=== PATIENT | male | born 1975 | race Caucasian/White ===

== ENCOUNTER 2017-07-13 19:57 | Inpatient (IN) | payer OTHER, SELFPAY ==
[2017-07-13 21:07] LABS: HEMOGLOBIN 14.4 g/dl (13.5-17.5); MEAN CORPUSCULAR HEMOGLOBIN 29.6 pg (27.0-33.0); MEAN CORPUSCULAR HGB CONC 34.3 g/dl (32.0-36.5); MEAN CORPUSCULAR VOLUME 86.2 fl (80.0-96.0); PLATELET COUNT, AUTOMATED 197 10^3/uL (150-450); RED BLOOD COUNT 4.87 10^6/uL (4.30-6.10); RED CELL DISTRIBUTION WIDTH 12.9 % (11.5-14.5); WHITE BLOOD COUNT 8.8 10^3/uL (4.0-10.0)
[2017-07-13 21:15] LABS: AMPHETAMINES LEVEL URINE POSITIVE (NEGATIVE); BARBITURATES URINE NEGATIVE (NEGATIVE); BENZODIAZEPINES URINE NEGATIVE (NEGATIVE); CANNABINOIDS URINE NEGATIVE (NEGATIVE); COCAINE METABOLITE URINE NEGATIVE (NEGATIVE); METHADONE URINE NEGATIVE (NEGATIVE); OPIATES URINE NEGATIVE (NEGATIVE); PHENCYCLIDINE URINE NEGATIVE (NEGATIVE)
[2017-07-13 22:01] LABS: ACETAMINOPHEN LEVEL < 2.0 UG/ML (10.0-30.0); ALBUMIN 3.2 GM/DL (3.2-5.2); ALBUMIN/GLOBULIN RATIO 1.03 (1.00-1.93); ALKALINE PHOSPHATASE 67 U/L (45-117); ALT/SGPT 28 U/L (12-78); ANION GAP 9 MEQ/L (8-16); AST/SGOT 25 U/L (7-37); BILIRUBIN,DIRECT < 0.1 MG/DL (0.0-0.2); BILIRUBIN,TOTAL 0.2 MG/DL (0.2-1.0); BLOOD UREA NITROGEN 10 MG/DL (7-18); CALCIUM LEVEL 8.2 MG/DL (8.5-10.1); CARBON DIOXIDE LEVEL 25 MEQ/L (21-32); CHLORIDE LEVEL 110 MEQ/L (98-107); CREATININE FOR GFR 0.64 MG/DL (0.70-1.30); GLOMERULAR FILTRATION RATE > 60.0 (>60); GLUCOSE, FASTING 103 MG/DL (70-100); POTASSIUM SERUM 4.1 MEQ/L (3.5-5.1); SALICYLATE LEVEL < 1.7 MG/DL (5.0-30.0); SODIUM LEVEL 144 MEQ/L (136-145); THYROID STIMULATING HORMONE 0.301 uIU/ML (0.358-3.740); TOTAL PROTEIN 6.3 GM/DL (6.4-8.2)
[2017-07-13 22:03] LABS: ETHYL ALCOHOL (ETHANOL) < 0.003 % (0.000-0.010)
[2017-07-13] MEDS ORDERED: MOM 30ML SUSPENSION UDC PO (22:30)
[2017-07-13] MEDS ORDERED: MAALOX 30 ML SUSP *UDC PO (22:30)
[2017-07-14] MEDS: NICOTINE 21MG/24HR 1 EA TRANSDERMAL TD (09:50)
[2017-07-14] MEDS: VENLAFAXINE **XR** 75MG CAPSULE PO (15:25)
[2017-07-14] MEDS: QUEtiapine FUMARATE 25 MG TAB PO (21:38)
[2017-07-15] MEDS: NICOTINE 21MG/24HR 1 EA TRANSDERMAL TD (10:22)
[2017-07-15] MEDS: VENLAFAXINE **XR** 75MG CAPSULE PO (10:22)
[2017-07-15] MEDS: OLANZapine ORAL DISINTEGRATING TAB 5MG PO (17:52)
[2017-07-15] MEDS: QUEtiapine FUMARATE 25 MG TAB PO (21:54)
[2017-07-15] MEDS: AZITHROMYCIN 250 MG TAB PO (21:54)
[2017-07-16] MEDS: VENLAFAXINE **XR** 75MG CAPSULE PO (08:45)
[2017-07-16] MEDS: NICOTINE 21MG/24HR 1 EA TRANSDERMAL TD (08:46)
[2017-07-16] MEDS: OLANZapine ORAL DISINTEGRATING TAB 5MG PO ×2 (09:24→18:45)
[2017-07-16] MEDS: GABAPENTIN 100 MG CAP PO ×2 (17:54→22:17)
[2017-07-16] MEDS: DULoxetine 30 MG CAP (CYMBALTA) PO (18:43)
[2017-07-16] MEDS: AZITHROMYCIN 250 MG TAB PO (22:17)
[2017-07-16] MEDS: QUEtiapine FUMARATE 25 MG TAB PO (22:18)
[2017-07-17] MEDS: GABAPENTIN 100 MG CAP PO ×3 (08:15→20:32)
[2017-07-17] MEDS: DULoxetine 30 MG CAP (CYMBALTA) PO (08:15)
[2017-07-17] MEDS: OLANZapine ORAL DISINTEGRATING TAB 5MG PO ×2 (08:16→16:56)
[2017-07-17] MEDS: NICOTINE 21MG/24HR 1 EA TRANSDERMAL TD (08:16)
[2017-07-17] MEDS ORDERED: VENLAFAXINE **XR** 37.5 MG CAPSULE PO (09:00)
[2017-07-17] MEDS ORDERED: VENLAFAXINE **XR** 75MG CAPSULE PO (09:00)
[2017-07-17] MEDS: clonazePAM 1 MG TAB PO ×2 (16:29→20:32)
[2017-07-17] MEDS: ATOMOXETINE HCL 40 MG CAP (STRATTERA) PO (16:56)
[2017-07-17] MEDS: QUEtiapine FUMARATE 25 MG TAB PO (20:32)
[2017-07-17] MEDS: AZITHROMYCIN 250 MG TAB PO (20:32)
[2017-07-18 08:04] LABS: FREE THYROXINE INDEX 3.2 % (1.4-3.8); T UPTAKE 40 % (33-40); THYROID STIMULATING HORMONE 0.608 uIU/ML (0.358-3.740); THYROXINE (T4) 8.1 UG/DL (4.5-12.0)
[2017-07-18] MEDS: NICOTINE 21MG/24HR 1 EA TRANSDERMAL TD (08:14)
[2017-07-18] MEDS: ATOMOXETINE HCL 40 MG CAP (STRATTERA) PO (08:14)
[2017-07-18] MEDS: clonazePAM 1 MG TAB PO ×2 (08:15→21:06)
[2017-07-18] MEDS: GABAPENTIN 100 MG CAP PO ×3 (08:15→21:06)
[2017-07-18] MEDS: OLANZapine ORAL DISINTEGRATING TAB 5MG PO ×3 (08:15→21:06)
[2017-07-18] MEDS: CitaloPRAM (CeleXA) 20 MG TAB PO (08:15)
[2017-07-18] MEDS: ACETAMINOPHEN TAB 650MG DOSE (2X325MG) PO (10:24)
[2017-07-18] MEDS: QUEtiapine FUMARATE 25 MG TAB PO (21:06)
[2017-07-18] MEDS: AZITHROMYCIN 250 MG TAB PO (21:06)
[2017-07-19] MEDS: ATOMOXETINE HCL 40 MG CAP (STRATTERA) PO (08:07)
[2017-07-19] MEDS: clonazePAM 1 MG TAB PO (08:07)
[2017-07-19] MEDS: GABAPENTIN 100 MG CAP PO (08:07)
[2017-07-19] MEDS: CitaloPRAM (CeleXA) 20 MG TAB PO (08:07)
[2017-07-19] MEDS: NICOTINE 21MG/24HR 1 EA TRANSDERMAL TD (08:07)
[2017-07-19] MEDS: OLANZapine ORAL DISINTEGRATING TAB 5MG PO (10:20)
== END 2017-07-19 10:20 | disposition home or self-care (01) | DRG 754 ==
LOC: M ED 19:57 → M ED INP 22:22 → M PSY 23:12
DX: F32.9 Major depressive disorder, single episode, unspecified (principal); F06.30 Mood disorder due to known physiological condition, unspecified; F41.1 Generalized anxiety disorder; F90.9 Attention-deficit hyperactivity disorder, unspecified type; Z79.899 Other long term (current) drug therapy; F17.210 Nicotine dependence, cigarettes, uncomplicated; J06.9 Acute upper respiratory infection, unspecified; R94.6 Abnormal results of thyroid function studies

== ENCOUNTER 2017-08-14 18:35 | Inpatient (IN) | payer OTHER, MEDICAID ==
[2017-08-14 19:20] LABS: HEMOGLOBIN 15.6 g/dl (13.5-17.5); MEAN CORPUSCULAR HEMOGLOBIN 29.3 pg (27.0-33.0); MEAN CORPUSCULAR HGB CONC 33.9 g/dl (32.0-36.5); MEAN CORPUSCULAR VOLUME 86.3 fl (80.0-96.0); PLATELET COUNT, AUTOMATED 220 10^3/uL (150-450); RED BLOOD COUNT 5.33 10^6/uL (4.30-6.10); RED CELL DISTRIBUTION WIDTH 13.1 % (11.5-14.5); WHITE BLOOD COUNT 11.2 10^3/uL (4.0-10.0)
[2017-08-14 19:23] LABS: ADD MANUAL DIFFER YES; DIFF SLIDE NUMBER 394; POSITIVE DIFF POS FLAG
[2017-08-14] MEDS: MORPHINE 4 MG/ML 1ML VIAL/SYRINGE (J2270) IV (19:40)
[2017-08-14] MEDS: NS 1,000 ML IV (19:41)
[2017-08-14 19:42] LABS: ALBUMIN 3.8 GM/DL (3.2-5.2); ALBUMIN/GLOBULIN RATIO 1.15 (1.00-1.93); ALKALINE PHOSPHATASE 69 U/L (45-117); ALT/SGPT 29 U/L (12-78); ANION GAP 5 MEQ/L (8-16); AST/SGOT 17 U/L (7-37); BILIRUBIN,TOTAL 0.3 MG/DL (0.2-1.0); BLOOD UREA NITROGEN 16 MG/DL (7-18); CALCIUM LEVEL 8.8 MG/DL (8.5-10.1); CARBON DIOXIDE LEVEL 30 MEQ/L (21-32); CHLORIDE LEVEL 108 MEQ/L (98-107); CREATININE FOR GFR 0.83 MG/DL (0.70-1.30); GLOMERULAR FILTRATION RATE > 60.0 (>60); GLUCOSE, FASTING 91 MG/DL (70-100); LIPASE 268 U/L (73-393); POTASSIUM SERUM 4.2 MEQ/L (3.5-5.1); SODIUM LEVEL 143 MEQ/L (136-145); TOTAL PROTEIN 7.1 GM/DL (6.4-8.2)
[2017-08-14 20:05] LABS: BASOPHILS 1 % (0-4); EOSINOPHILS 1 % (0-5); LYMPHOCYTES 48 % (16-52); MONOCYTES 4 % (0-8); NEUTROPHILS 46 % (35-75); PLATELET ESTIMATE NORMAL (NORMAL)
[2017-08-14] MEDS: PROCHLORPERAZINE 10 MG/2 ML VIAL (J0780) IV (20:12)
[2017-08-14 21:03] LABS: AMORPHOUS SEDIMENT SMALL (NEGATIVE); APPEARANCE, URINE CLOUDY (CLEAR); BACTERIA, URINE AUTO NEGATIVE (NEGATIVE); BILIRUBIN, URINE AUTO NEGATIVE (NEGATIVE); BLOOD, URINE BLOOD NEGATIVE (NEGATIVE); COLOR, URINE YELLOW (YELLOW); GLUCOSE, URINE (UA) AUTO NEGATIVE (NEGATIVE); KETONE, URINE AUTO NEGATIVE (NEGATIVE); LEUKOCYTE ESTERASE, URINE AUTO NEGATIVE (NEGATIVE); MUCUS, URINE SMALL (NEGATIVE); NITRITE, URINE AUTO NEGATIVE (NEGATIVE); PROTEIN, URINE AUTO NEGATIVE (NEGATIVE); RBC, URINE AUTO 2 /HPF (0-3); SPECIFIC GRAVITY URINE AUTO 1.017 (1.002-1.035); SQUAMOUS EPITHELIAL CELL UR AU 0 /HPF (0-6); UROBILINOGEN, URINE AUTO 0.2 mg/dL (0.0-2.0); WBC, URINE AUTO 0 /HPF (0-3)
[2017-08-14] MEDS ORDERED: OLANZapine 5 MG TAB PO (22:15)
[2017-08-14] MEDS ORDERED: KETOROLAC 30 MG/ML VIAL (J1885) IV (22:15)
[2017-08-14] MEDS ORDERED: ONDANSETRON 4MG/2ML VIAL (J2405) IV (22:15)
[2017-08-14] MEDS ORDERED: D5W/0.45% SODIUM CHLORIDE 1,000 ML IV (22:15)
[2017-08-14] MEDS ORDERED: hydrOXYzine 25 MG TAB PO (22:15)
[2017-08-14] MEDS ORDERED: NICOTINE 21MG/24HR 1 EA TRANSDERMAL TD (23:00)
[2017-08-15] MEDS ORDERED: CitaloPRAM (CeleXA) 20 MG TAB PO (09:00)
[2017-08-15] MEDS ORDERED: GABAPENTIN 300 MG CAP PO (09:00)
== END 2017-08-14 23:30 | disposition left against medical advice (07) ==
LOC: M ED 18:35 → M ED INP 22:06
DX: K80.51 Calculus of bile duct without cholangitis or cholecystitis with obstruction (principal); F31.9 Bipolar disorder, unspecified; F90.9 Attention-deficit hyperactivity disorder, unspecified type; F17.210 Nicotine dependence, cigarettes, uncomplicated; Z79.899 Other long term (current) drug therapy; Z88.0 Allergy status to penicillin

== ENCOUNTER 2017-08-15 20:03 | Inpatient (IN) | payer OTHER ==
[2017-08-15] MEDS: NICOTINE 21MG/24HR 1 EA TRANSDERMAL TD (00:20)
[2017-08-15] MEDS ORDERED: ACETAMINOPHEN TAB 650MG DOSE (2X325MG) PO (23:15)
[2017-08-15] MEDS ORDERED: ONDANSETRON 4MG/2ML VIAL (J2405) IV (23:15)
[2017-08-15] MEDS ORDERED: OLANZapine 10 MG TAB PO (23:30)
[2017-08-16 00:20] LABS: BASO # 0.1 10^3/uL (0.0-0.2); BASO % 0.7 % (0.0-1.0); EOS # 0.3 10^3/uL (0.0-0.50); EOS % 2.8 % (0.0-3.0); HEMATOCRIT 43.2 % (42.0-52.0); HEMOGLOBIN 14.8 g/dl (13.5-17.5); IMMATURE GRANULOCYTE % 0.2 % (0-3.0); LYMPH # 3.4 10^3/uL (1.5-4.5); MEAN CORPUSCULAR HEMOGLOBIN 29.7 pg (27.0-33.0); MEAN CORPUSCULAR HGB CONC 34.3 g/dl (32.0-36.5); MEAN CORPUSCULAR VOLUME 86.7 fl (80.0-96.0); MONO # 0.5 10^3/uL (0.0-0.8); MONO % 5.5 % (0.0-5.0); NEUTROPHILS # 4.7 10^3/uL (1.8-7.7); NEUTROPHILS % 52.8 % (36.0-66.0); PLATELET COUNT, AUTOMATED 192 10^3/uL (150-450); RED BLOOD COUNT 4.98 10^6/uL (4.30-6.10); RED CELL DISTRIBUTION WIDTH 13.2 % (11.5-14.5); WHITE BLOOD COUNT 8.9 10^3/uL (4.0-10.0)
[2017-08-16] MEDS: NS 1,000 ML IV ×2 (00:20→10:06)
[2017-08-16] MEDS: PERCOCET 5MG/325MG TAB PO ×5 (00:20→21:30)
[2017-08-16 00:42] LABS: ALBUMIN 3.4 GM/DL (3.2-5.2); ALBUMIN/GLOBULIN RATIO 1.06 (1.00-1.93); ALKALINE PHOSPHATASE 66 U/L (45-117); ALT/SGPT 37 U/L (12-78); ANION GAP 5 MEQ/L (8-16); AST/SGOT 17 U/L (7-37); BILIRUBIN,DIRECT < 0.1 MG/DL (0.0-0.2); BILIRUBIN,TOTAL 0.3 MG/DL (0.2-1.0); BLOOD UREA NITROGEN 10 MG/DL (7-18); CALCIUM LEVEL 8.5 MG/DL (8.5-10.1); CARBON DIOXIDE LEVEL 29 MEQ/L (21-32); CHLORIDE LEVEL 108 MEQ/L (98-107); CREATININE FOR GFR 0.67 MG/DL (0.70-1.30); GLOMERULAR FILTRATION RATE > 60.0 (>60); GLUCOSE, FASTING 108 MG/DL (70-100); LIPASE 153 U/L (73-393); POTASSIUM SERUM 3.6 MEQ/L (3.5-5.1); SODIUM LEVEL 142 MEQ/L (136-145); TOTAL PROTEIN 6.6 GM/DL (6.4-8.2)
[2017-08-16 06:38] LABS: AMORPHOUS SEDIMENT RFX SMALL (NEGATIVE); KETONE, URINE AUTO RFX NEGATIVE (NEGATIVE); LEUKOCYTE ESTERASE UR AUTO RFX NEGATIVE (NEGATIVE); NITRITE, URINE AUTO RFX NEGATIVE (NEGATIVE); RBC, URINE AUTO RFX 1 /HPF (0-3); SPECIFIC GRAVITY UR AUTO RFX 1.016 (1.002-1.035); SQUAM EPITHELIAL CELL UR AURFX 0 /HPF (0-6); WBC, URINE AUTO RFX 0 /HPF (0-3)
[2017-08-16] MEDS: CitaloPRAM (CeleXA) 20 MG TAB PO (09:13)
[2017-08-16] MEDS: GABAPENTIN 300 MG CAP PO ×3 (09:13→21:29)
[2017-08-16] MEDS: hydrOXYzine 25 MG TAB PO ×3 (09:13→21:45)
[2017-08-16] MEDS: LISDEXAMFETAMINE 50 MG PO (10:47)
[2017-08-16] MEDS: NICOTINE 21MG/24HR 1 EA TRANSDERMAL TD (10:48)
[2017-08-16] MEDS ORDERED: fentaNYL 100 MCG/2 ML INJECTION (J3010) As Ordered (20:29)
[2017-08-16] MEDS ORDERED: PROPOFOL 200 MG/20 ML VIAL As Ordered ×2 (20:33)
[2017-08-16] MEDS ORDERED: ONDANSETRON 4MG/2ML VIAL (J2405) IV (21:00)
[2017-08-16] MEDS ORDERED: LR 1,000 ML IV (21:00)
[2017-08-16] MEDS ORDERED: fentaNYL 100 MCG/2 ML INJECTION (J3010) IV (21:00)
[2017-08-16] MEDS ORDERED: METOCLOPRAMIDE INJ 10MG/2ML VIAL (J2765) IV (21:00)
[2017-08-17] MEDS: GABAPENTIN 300 MG CAP PO (07:42)
[2017-08-17] MEDS: CitaloPRAM (CeleXA) 20 MG TAB PO (07:42)
[2017-08-17] MEDS: LISDEXAMFETAMINE 50 MG PO (07:43)
[2017-08-17] MEDS: NICOTINE 21MG/24HR 1 EA TRANSDERMAL TD (07:45)
[2017-08-17] MEDS: PERCOCET 5MG/325MG TAB PO (10:22)
[2017-08-17] MEDS: hydrOXYzine 25 MG TAB PO (12:23)
== END 2017-08-17 13:55 | disposition home or self-care (01) ==
LOC: M MS5PR 08-16 00:46 → M ED 20:03 → M ED INP 23:07
PROC: 0DJ08ZZ Inspection of Upper Intestinal Tract, Via Natural or Artificial Opening Endoscopic (ICD-10-PCS; principal; 2017-08-16 19:00)
DX: K80.00 Calculus of gallbladder with acute cholecystitis without obstruction (principal); F31.9 Bipolar disorder, unspecified; F90.9 Attention-deficit hyperactivity disorder, unspecified type; F41.9 Anxiety disorder, unspecified; Z88.0 Allergy status to penicillin; Z79.899 Other long term (current) drug therapy; F17.210 Nicotine dependence, cigarettes, uncomplicated

== ENCOUNTER 2017-11-12 03:17 | Emergency (ER) | payer OTHER ==
[2017-11-12 04:21] LABS: BASO # 0.1 10^3/uL (0.0-0.2); BASO % 0.6 % (0.0-1.0); EOS # 0.4 10^3/uL (0.0-0.50); EOS % 3.8 % (0.0-3.0); HEMATOCRIT 45.4 % (42.0-52.0); HEMOGLOBIN 15.5 g/dl (13.5-17.5); IMMATURE GRANULOCYTE % 0.4 % (0-3.0); LYMPH # 3.8 10^3/uL (1.5-4.5); LYMPH % 38.1 % (24.0-44.0); MEAN CORPUSCULAR HEMOGLOBIN 29.8 pg (27.0-33.0); MEAN CORPUSCULAR HGB CONC 34.1 g/dl (32.0-36.5); MEAN CORPUSCULAR VOLUME 87.3 fl (80.0-96.0); MONO # 0.7 10^3/uL (0.0-0.8); MONO % 6.6 % (0.0-5.0); NEUTROPHILS % 50.5 % (36.0-66.0); PLATELET COUNT, AUTOMATED 193 10^3/uL (150-450); RED CELL DISTRIBUTION WIDTH 12.8 % (11.5-14.5); WHITE BLOOD COUNT 9.9 10^3/uL (4.0-10.0)
[2017-11-12 04:43] LABS: ALBUMIN 3.4 GM/DL (3.2-5.2); ALBUMIN/GLOBULIN RATIO 0.97 (1.00-1.93); ALKALINE PHOSPHATASE 60 U/L (45-117); ALT/SGPT 27 U/L (12-78); AMYLASE 78 U/L (25-115); ANION GAP 6 MEQ/L (8-16); AST/SGOT 14 U/L (7-37); BILIRUBIN,DIRECT 0.2 MG/DL (0.0-0.2); BILIRUBIN,TOTAL 0.4 MG/DL (0.2-1.0); BLOOD UREA NITROGEN 15 MG/DL (7-18); CALCIUM LEVEL 8.5 MG/DL (8.5-10.1); CARBON DIOXIDE LEVEL 28 MEQ/L (21-32); CHLORIDE LEVEL 110 MEQ/L (98-107); GLOMERULAR FILTRATION RATE > 60.0 (>60); GLUCOSE, FASTING 91 MG/DL (70-100); LIPASE 202 U/L (73-393); POTASSIUM SERUM 3.5 MEQ/L (3.5-5.1); SODIUM LEVEL 144 MEQ/L (136-145); TOTAL PROTEIN 6.9 GM/DL (6.4-8.2)
[2017-11-12] MEDS: MORPHINE 4 MG/ML 1ML VIAL/SYRINGE (J2270) IV (06:15)
[2017-11-12] MEDS: NS 1,000 ML IV (06:15)
== END 2017-11-12 09:38 | disposition home or self-care (01) ==
LOC: M ED 03:17
DX: K80.40 Calculus of bile duct with cholecystitis, unspecified, without obstruction (principal); F31.9 Bipolar disorder, unspecified; F17.200 Nicotine dependence, unspecified, uncomplicated; Z88.0 Allergy status to penicillin; Z79.899 Other long term (current) drug therapy
CPT/HCPCS: J2270

== ENCOUNTER 2017-12-10 09:56 | Day surgery (SDC) | payer OTHER ==
[2017-12-10] MEDS ORDERED: PROPOFOL 200 MG/20 ML VIAL As Ordered (11:03)
[2017-12-10] MEDS ORDERED: fentaNYL 250 MCG/5 ML INJECTION (J3010) As Ordered (11:03)
[2017-12-10] MEDS ORDERED: ROCURONIUM BROMIDE 50 MG/5 ML VIAL As Ordered (11:03)
[2017-12-10] MEDS ORDERED: dexameTHASONE 4 MG/ML 1ML VIAL (J1100) As Ordered (11:03)
[2017-12-10] MEDS ORDERED: ONDANSETRON 4MG/2ML VIAL (J2405) As Ordered (11:03)
[2017-12-10] MEDS ORDERED: KETOROLAC 60 MG/2 ML VIAL (J1885) As Ordered (11:03)
[2017-12-10] MEDS ORDERED: MIDAZOLAM INJ 2 MG/2 ML VIAL (J2250) As Ordered ×2 (11:03→12:00)
[2017-12-10] MEDS ORDERED: LIDOCAINE 2% INJ 100 MG/5 ML SDV (FOR ANES.) As Ordered (11:03)
[2017-12-10] MEDS ORDERED: NEOSTIGMINE 10 MG/10 ML VIAL (J2710) As Ordered (11:06)
[2017-12-10] MEDS ORDERED: GLYCOPYRROLATE INJ 0.2 MG/ML 2 ML VIAL As Ordered ×2 (11:06)
[2017-12-10] MEDS ORDERED: fentaNYL 100 MCG/2 ML INJECTION (J3010) As Ordered (11:17)
[2017-12-10] MEDS ORDERED: SUGAMMADEX SODIUM 500 MG/5 ML VIAL (BRIDION) As Ordered (11:21)
[2017-12-10] MEDS: BUPIVACAINE/EPIN 0.25% 30 ML VIAL As Ordered (11:34)
[2017-12-10] MEDS: BUPIVACAINE HCL 0.25% 30 ML VIAL As Ordered (11:34)
[2017-12-10] MEDS ORDERED: MORPHINE 10 MG/ML 1ML VIAL (J2270) IV (12:15)
[2017-12-10] MEDS ORDERED: LR 1,000 ML IV (12:15)
[2017-12-10] MEDS ORDERED: NORCO, ANEXSIA 5/325MG TABLET (HYDROcodone/ACETAMINOPHEN) PO (12:15)
[2017-12-10] MEDS: PERCOCET 5MG/325MG TAB PO (12:23)
[2017-12-10] MEDS: fentaNYL 100 MCG/2 ML INJECTION (J3010) IV ×4 (12:30→12:45)
[2017-12-10] MEDS: ONDANSETRON 4MG/2ML VIAL (J2405) IV (12:30)
== END 2017-12-10 14:30 | disposition home or self-care (01) ==
LOC: M SDC 09:56
DX: K80.10 Calculus of gallbladder with chronic cholecystitis without obstruction (principal); F41.9 Anxiety disorder, unspecified; F32.9 Major depressive disorder, single episode, unspecified; F90.9 Attention-deficit hyperactivity disorder, unspecified type; R06.83 Snoring; F12.90 Cannabis use, unspecified, uncomplicated; L98.9 Disorder of the skin and subcutaneous tissue, unspecified; Z72.0 Tobacco use; Z88.0 Allergy status to penicillin; Z79.899 Other long term (current) drug therapy
CPT/HCPCS: 47562

== ENCOUNTER 2018-04-19 18:22 | Emergency (ER) | payer OTHER ==
[~2018-04-19] VITALS: Ht 175.3 cm; Wt 81.8 kg
[~2018-04-19 18:22] MED LIST: ATOM40CA PO; AZIT-12 PO; CELE20TA PO; CIPR-249 PO; CITA20TA4 PO; CLON1TAB8 PO; FLAG500T PO; GABA-1171 PO; GABA-843 PO; HYDR-3363 PO; MIRT30TA3 PO; NICO21DI31 TD; NICO21PAT TD; NORCOTAB PO; OLAN10TA2 PO; OLAN15TA PO; PERCOCET PO; QUET1TAB7 PO; REME30TA PO; TYLE325T5 PO; VYVA50CA4 PO
[2018-04-19] MEDS ORDERED: ZITHTAB PO (20:01)
[2018-04-19] MEDS ORDERED: PRED20TA PO (20:01)
--- NOTE | 2018-04-19 20:11 | REP ---
CHEST, TWO VIEWS: No comparison. Two views of the chest are performed. There are streak opacities in the lung bases probably representing fibro atelectatic change. The heart is normal in size. Mediastinal silhouette is unremarkable. Visualized osseous structures appear unremarkable. IMPRESSION: Streaky bibasilar opacities most compatible with fibro atelectatic changes. No consolidating infiltrate. Electronically Signed by Alfonso Boswell MD 04/20/2018 07:17 P
[2018-04-19 20:12] VITALS: BP 121/69
--- NOTE | 2018-04-20 06:39 | ECGEPIP ---
Stationary ECG Study [facility] - ED Test Date: 2018-04-19 Pat Name: LAURA ELIZALDE Department: Room: - Gender: M Records Assistant: gt : 1975 Requested By: PEDRO Waters Order Number: [id number] Reading MD: Arnoldo Mcmanus Measurements Intervals [place] Rate: 84 P: 69 IA: 153 QRS: 77 QRSD: 95 T: 44 QT: 340 QTc: 402 Interpretive Statements SINUS RHYTHM POSSIBLE INFERIOR MYOCARDIAL INFARCTION, PROBABLY OLD WITH POSTERIOR EXTENSION NONSPECIFIC ST T WAVE CHANGES NO OLD ECG FOR COMPARISON Electronically Signed On 04-20-2018 6:39:34 EST by Arnoldo Mcmanus
== END 2018-04-19 20:13 | disposition home or self-care (01) ==
LOC: M ED 18:22
DX: F41.1 Generalized anxiety disorder (principal); J42 Unspecified chronic bronchitis; F32.9 Major depressive disorder, single episode, unspecified; Z72.0 Tobacco use; Z88.0 Allergy status to penicillin

== ENCOUNTER 2018-08-11 21:29 | Inpatient (IN) | payer MEDICAID, OTHER, SELFPAY ==
[~2018-08-11] VITALS: Ht 175.3 cm; Wt 75.1 kg
[~2018-08-11 21:29] MED LIST changes: -CITA20TA4 PO; +CITA20TA6 PO; +HYDR-3715 PO; -NORCOTAB PO; +PRED20TA PO; +ZITHTAB PO
[2018-08-11] MEDS ORDERED: LORazepam 2 MG/ML VIAL (J2060) IM STA (21:57)
[2018-08-11] MEDS ORDERED: NICOTINE 21MG/24HR 1 EA TRANSDERMAL TD ONE (22:00)
[2018-08-11 22:08] LABS: HEMOGLOBIN 15.5 g/dl (13.5-17.5); MEAN CORPUSCULAR HEMOGLOBIN 30.4 pg (27.0-33.0); MEAN CORPUSCULAR HGB CONC 33.7 g/dl (32.0-36.5); MEAN CORPUSCULAR VOLUME 90.2 fl (80.0-96.0); PLATELET COUNT, AUTOMATED 184 10^3/uL (150-450); WHITE BLOOD COUNT 10.7 10^3/uL (4.0-10.0)
[2018-08-11 22:50] LABS: ACETAMINOPHEN LEVEL < 2.0 UG/ML (10.0-30.0); ALBUMIN 3.5 GM/DL (3.2-5.2); ALT/SGPT 29 U/L (12-78); BILIRUBIN,DIRECT 0.2 MG/DL (0.0-0.2); BILIRUBIN,TOTAL 0.8 MG/DL (0.2-1.0); BLOOD UREA NITROGEN 8 MG/DL (7-18); CALCIUM LEVEL 8.6 MG/DL (8.5-10.1); CARBON DIOXIDE LEVEL 27 MEQ/L (21-32); CHLORIDE LEVEL 107 MEQ/L (98-107); CPK CREATINE PHOSPHOKINASE 184 U/L (39-308); CREATININE FOR GFR 0.84 MG/DL (0.70-1.30); ETHYL ALCOHOL (ETHANOL) < 0.003 % (0.000-0.010); GLOMERULAR FILTRATION RATE > 60.0 (>60); GLUCOSE, FASTING 76 MG/DL (70-100); POTASSIUM SERUM 3.5 MEQ/L (3.5-5.1); SODIUM LEVEL 144 MEQ/L (136-145); THYROID STIMULATING HORMONE 0.927 uIU/ML (0.358-3.740); TOTAL PROTEIN 6.4 GM/DL (6.4-8.2)
[2018-08-11 23:22] LABS: AMPHETAMINES LEVEL URINE POSITIVE (NEGATIVE); BARBITURATES URINE NEGATIVE (NEGATIVE); BENZODIAZEPINES URINE NEGATIVE (NEGATIVE); CANNABINOIDS URINE POSITIVE (NEGATIVE); COCAINE METABOLITE URINE NEGATIVE (NEGATIVE); METHADONE URINE NEGATIVE (NEGATIVE); OPIATES URINE NEGATIVE (NEGATIVE); PHENCYCLIDINE URINE NEGATIVE (NEGATIVE)
[2018-08-12] MEDS ORDERED: QUET1TAB7 PO (00:09)
[2018-08-12] MEDS ORDERED: REME15TA2 PO (00:09)
[2018-08-12] MEDS ORDERED: VYVA70CA3 PO (00:09)
[2018-08-12] MEDS ORDERED: MIRT1TAB PO (09:12)
[2018-08-12] MEDS ORDERED: MAALOX 30 ML SUSP *UDC PO PRN (13:45)
[2018-08-12] MEDS ORDERED: MOM 30ML SUSPENSION UDC PO PRN (13:45)
[2018-08-12 14:28] VITALS: BP 142/72
[2018-08-12] MEDS ORDERED: NICOTINE 21MG/24HR 1 EA TRANSDERMAL TD ONE (14:30)
--- NOTE | 2018-08-12 15:10 | ECGEPIP ---
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
[2018-08-12] MEDS: OLANZapine ORAL DISINTEGRATING TAB 5MG PO PRN (15:31)
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
[2018-08-12] MEDS ORDERED: DOCUSATE SODIUM 100 MG CAP PO PRN (16:30)
[2018-08-12] MEDS: traZODone 50 MG TAB PO PRN (21:51)
[2018-08-12] MEDS: ANUSOL HC 25MG SUPP PR SCH (21:51)
[2018-08-13] MEDS: ANUSOL HC 25MG SUPP PR SCH ×3 (05:53→22:00)
[2018-08-13 06:41] VITALS: BP 129/78
[2018-08-13] MEDS: OLANZapine ORAL DISINTEGRATING TAB 5MG PO PRN (08:24)
[2018-08-13] MEDS: NICOTINE 21MG/24HR 1 EA TRANSDERMAL TD SCH (08:24)
[2018-08-13 11:49] VITALS: BP 112/55
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
[2018-08-13] MEDS: QUEtiapine FUMARATE 25 MG TAB PO SCH ×2 (16:05→20:44)
[2018-08-13 18:41] VITALS: BP 106/59
[2018-08-13] MEDS: MIRTAZAPINE 15 MG TAB PO SCH (20:44)
[2018-08-13] MEDS: traZODone 50 MG TAB PO PRN (20:44)
[2018-08-14] MEDS: ANUSOL HC 25MG SUPP PR SCH ×3 (05:09→21:25)
[2018-08-14 06:39] VITALS: BP 114/72
[2018-08-14] MEDS ORDERED: ADDERALL 5 MG TAB PO SCH (09:00)
[2018-08-14] MEDS: QUEtiapine FUMARATE 25 MG TAB PO SCH ×2 (09:43→20:24)
[2018-08-14] MEDS: NICOTINE 21MG/24HR 1 EA TRANSDERMAL TD SCH (09:44)
[2018-08-14] MEDS: OLANZapine ORAL DISINTEGRATING TAB 5MG PO PRN (12:49)
[2018-08-14] MEDS: ACETAMINOPHEN TAB 650MG DOSE (2X325MG) PO PRN (12:50)
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
[2018-08-14 18:00] VITALS: BP 109/64
[2018-08-14] MEDS: MIRTAZAPINE 15 MG TAB PO SCH (20:24)
[2018-08-15] MEDS: ANUSOL HC 25MG SUPP PR SCH ×3 (05:15→21:14)
[2018-08-15 06:34] LABS: CHOLESTEROL RISK RATIO 3.628 (<5)
[2018-08-15 06:48] VITALS: BP 109/62
[2018-08-15] MEDS: NICOTINE 21MG/24HR 1 EA TRANSDERMAL TD SCH (08:11)
[2018-08-15] MEDS: ADDERALL 5 MG TAB PO SCH (08:12)
[2018-08-15] MEDS: QUEtiapine FUMARATE 25 MG TAB PO SCH (08:12)
[2018-08-15] MEDS: OLANZapine ORAL DISINTEGRATING TAB 5MG PO PRN (12:49)
[2018-08-15] MEDS: ACETAMINOPHEN TAB 650MG DOSE (2X325MG) PO PRN (17:22)
[2018-08-15 18:00] VITALS: BP 132/84
[2018-08-15] MEDS: MIRTAZAPINE 15 MG TAB PO SCH (20:23)
--- NOTE | 2018-08-15 20:51 | MHIPNPDOC ---
[facility] Progress Note Progress Note DATE OF SERVICE: 08/15/18 HISTORY: Patient is a 43 -year-old , male, who. as per ED report: " Reason for Referral pt has a hx of Bi-polar Disorder, currently decompensating due to non-compliance with medication. Pt expresses SI(no plan) and HI(with plan) upon arrival... Chief Complaint pt states, "I'm scared I'm going to kill myself or kill someone else." Pt reports a hx of Bipolar Disorder, currently seeks tx with [facility]. 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 States he's been out of meds for the past 10-14 days and is aware he's manic, along with increase agitation. Pt states, "I'm going to kill my 's boyfriend." States he has a plan but refuses to explain in detail. Pt reports kicked him out 2 months ago due to suspecting he's abusing drugs. Pt admits to Marijuana abuse, but denies any other substances. States he's having a difficult time with spouse "already having a boyfriend" and is not being legally or . Pt's speech is very rapid, appears manic, and continues to express SI(no plan) and HI(with plan) directed towards spouse's new boyfriend. States he has intent to kill him and will follow through even after hospitalization is completed" VITAL SIGNS: See below. NEW TEST RESULTS: See below. CURRENT MEDICATIONS: See below. MENTAL STATUS EXAMINATION: Patient is a 43-year old male, who is alert, dressed in hospital clothes, cooperative. Speech: Is normal in rate, tone and volume. Language skills are good. Thought processes including: linear, coherent. Thought content: focused on being discharged, he needs to go back to work in order to pay his bills. He denies SI and denies HI. Abstract reasoning, and computation: fair Description of associations: good. Description of abnormal or psychotic thoughts: denies AV hallucinations, denies thought delusions. Judgment: improving. Insight: improving. Orientation: x 3. Recent and remote memory: intact. Attention span and concentration: good. Language: rissa. Fund of knowledge: average. Mood: anxious Affect: congruent with mood. DIAGNOSES: 1. Bipolar disorder, depressed 2. ADHD by history. 3. . ASSESSMENT: The patient was not approved for Medicaid, so, he will be leaving tomorrow and will send him with scripts for generic medications from [facility]. He will be able to get Quetiapine but Vyvanse is very expensive and they don't have Adderall or Ritalin, probably they are controlled substances. [facility], so, maybe they will be able to give him some samples. the patient has improved bu he is drinking too much coffeee and this is not going to help him feel calm, plus it puts abit risk on his heart and blood pressure. He was counseled this morning to decrease his caffeine intake but he says he drinks a lot of coffee because medications usually make him feel a little sleepy and he needs to be awake to be able to work. His mood and affect have improved, his insight has improved and his judgement too. He says he won't hurt his 's boyfriend, won't hurt himself and denies psychosis. He could be discharged tomorrow, depending on how he presents tomorrow morning. Sde is going to inquire if he could qualify for other type of health insurance. MANAGEMENT PLAN: Consider the possibility of discharging him tomorrow TIME SPENT: 20 minutes. Vital Signs Vital Signs Date Time Temp Pulse Resp B/P (MAP) Pulse Ox O2 Delivery O2 Flow Rate FiO2 08/15/18 18:00 99.6 102 18 132/84 (100) 08/15/18 11:17 Room Air 08/12/18 14:28 93 Laboratory Data 24H Labs Laboratory Tests 2 08/15/18 05:53: Triglycerides Level 105, LDL Cholesterol 71, Total Cholesterol 127, Non-HDL Cholesterol (LDL + VLDL) 92, Total HDL Cholesterol 35L, Cholesterol/HDL Ratio 3.628 Current Medications Current Medications Acetaminophen (Tylenol Tab) 650 mg Q6HP PRN PO HEADACHE or DISCOMFORT Last administered on 08/15/18at 17:22; Start 08/12/18 at 13:45 Al Hydrox/Mg Hydrox/Simethicone (Mylanta) 30 ml Q4HP PRN PO HEAR TBURN/INDIGESTION; Start 08/12/18 at 13:45 Amphetamine/ Dextroamphetamine (Adderall) 20 mg QAM PO Last administered on 08/14/18 09:44; Start 08/14/18 at 09:00; Stop 08/14/18 at 16:03; Status DC Amphetamine/ Dextroamphetamine (Adderall) 30 mg QAM PO Last administered on 08/15/18at 08:12; Start 08/15/18 at 09:00 Docusate Sodium (Colace) 100 mg BIDP PRN PO CONSTIPATION; Start 08/12/18 at 16:30 Home Med (Med Rec Complete!) ASDIRECTED XX ; Start 08/12/18 at 09:15; Stop 08/12/18 at 09:17; Status DC Hydrocortisone Acetate (Anusol Hc Supp) 25 mg Q8H FL Last administered on 08/12/18at 21:51; Start 08/12/18 at 22:00 Lorazepam (Ativan) 2 mg STAT STAT IM Last administered on 08/11/18at 22:21; Start 08/11/18 at 21:57; Stop 08/11/18 at 21:58; Status DC Magnesium Hydroxide (Milk Of Magnesia) 30 ml DAILYPRN PRN PO CONSTIPATION; Start 08/12/18 at 13:45 Mirtazapine (Remeron) 15 mg QHS PO Last administered on 08/15/18at 20:23; Start 08/13/18 at 21:00 Nicotine (Nicoderm Cq 21mg) 1 patch DAILY TD Last administered on 08/15/18at 08:11; Start 08/13/18 at 09:00 Olanzapine (ZyPREXA ZYDIS) 5 mg Q4HP PRN PO ANXIETY/AGITATION Last administered on 08/15/18at 12:49; Start 08/12/18 at 14:00 Quetiapine Fumarate (SEROquel) 25 mg QAM PO ; Start 08/16/18 at 09:00 Quetiapine Fumarate (SEROquel) 25 mg TID PO Last administered on 08/14/18at 09:43; Start 08/13/18 at 16:00; Stop 08/14/18 at 16:03; Status DC Quetiapine Fumarate (SEROquel) 50 mg TID PO Last administered on 08/15/18at 08:12; Start 08/14/18 at 21:00; Stop 08/15/18 at 11:42; Status DC Quetiapine Fumarate (SEROquel) 100 mg QHS PO Last administered on 08/15/18at 20:23; Start 08/15/18 at 21:00 Trazodone HCl (Desyrel) 50 mg QHSP PRN PO INSOMNIA Last administered on 08/13/18at 20:44; Start 08/12/18 at 13:45 Allergies Coded Allergies: Penicillins (Verified Allergy, Severe, 08/11/18) GLENYS CHILDERS MD Aug 15, 2018 20:51
[2018-08-15] MEDS ORDERED: QUEtiapine FUMARATE 100 MG TAB PO SCH (21:00)
[2018-08-16] MEDS: ANUSOL HC 25MG SUPP PR SCH (05:06)
[2018-08-16 06:35] VITALS: BP 139/86
[2018-08-16] MEDS: ADDERALL 5 MG TAB PO SCH (08:03)
[2018-08-16] MEDS: NICOTINE 21MG/24HR 1 EA TRANSDERMAL TD SCH (08:03)
[2018-08-16] MEDS ORDERED: QUEtiapine FUMARATE 25 MG TAB PO SCH (09:00)
[2018-08-16] MEDS: OLANZapine ORAL DISINTEGRATING TAB 5MG PO PRN (09:57)
[2018-08-16] MEDS ORDERED: QUET1TAB7 PO (11:18)
[2018-08-16] MEDS ORDERED: REME15TA PO (11:18)
[2018-08-16] MEDS ORDERED: QUET1TAB8 PO (11:18)
[2018-08-16] MEDS ORDERED: NICO21PAT TD (11:18)
[2018-08-16] MEDS ORDERED: COLA100C5 PO (11:18)
--- NOTE | 2018-09-07 22:56 | MHDSPDOC ---
[facility] Discharge Summary Discharge Summary DATE OF ADMISSION: Aug 12, 2018 at 13:34 DATE OF DISCHARGE: Aug 16, 2018 at 12:15 DISCHARGE DIAGNOSES: 1. Bipolar disorder, depressed 2. ADHD by history. REASON FOR ADMISSION: Patient is a 43 -year-old , male, who. as per ED report: "Reason for Referral pt has a hx of Bi-polar Disorder, currently decompensating due to non-compliance with medication. Pt expresses SI(no plan) and HI(with plan) upon arrival... Chief Complaint pt states, "I'm scared I'm going to kill myself or kill someone else." Pt reports a hx of Bipolar Disorder, currently seeks tx with [facility]. Admits not being able to hand picker his medications from the pharmacy due to not having any prescription coverage and unable to afford medication on his own. States he's been out of meds for the past 10-14 days and is aware he's manic, along with increase agitation. Pt states, "I'm going to kill my 's boyfriend." States he has a plan but refuses to explain in detail. Pt reports kicked him out 2 months ago due to suspecting he's abusing drugs. Pt admits to Marijuana abuse, but denies any other substances. States he's having a difficult time with spouse "already having a boyfriend" and is not being legally or . Pt's speech is very rapid, appears manic, and continues to express SI(no plan) and HI(with plan) directed towards spouse's new boyfriend. States he has intent to kill him and will follow through even after hospitalization is completed" CONSULTANTS INVOLVED: None TREATMENT AND PROGRESS ON THE UNIT : Upon initial evaluation the patient was very irritable, angry at his 's new boyfriend and he had suicidal and homicidal ideation. He said he wanted to take Vyvanse for ADHD but the hospital doesn't have Vyvanse in the pharmacy. he agreed to take Seroquel but he didn't wnt a high does in the morning because he was afraid of being sleepy during the day time and not be able to perform at work. 48 hours later his mood and affect had improved, he was able to sleep and this helped him decrease his anxiety, depression and anger. He started being logical and he said he was not yuli that angry at his 's new boyfriend. He started accepting responsibilities of his own problems and he was able to see how these had affected his marriage in a negative way. The patient was not able to comply with medications before because he was out of insurance and through the [facility] he applied for [place] ed[place] but he couldn't because his salary was above what would be approved for Medicaid. Once he felt better, he requested to be discharged because he said that staying at the Unit was going to stress him more since he needed to g back to work to pay his bills. He had a good response to medications, he denied negative/adverse effects. HOSPITAL COURSE: As above DISCHARGE ASSESSMENT: The patient was not suicidal, not homicidal, not psychotic at the time of his discharge. He was future orientated, he wanted to go back to work, continue his outpatient treatment. MENTAL STATUS EXAMINATION ON DISCHARGE: Patient is a 43-year old male, who is alert, dressed in hospital clothes, cooperative. Speech: Is normal in rate, tone and volume. Language skills are good. Thought processes including: linear, coherent. Thought content: focused on being discharged, he needs to go back to work in order to pay his bills. He denies SI and denies HI. Abstract reasoning, and computation: fair Description of associations: good. Description of abnormal or psychotic thoughts: denies AV hallucinations, denies thought delusions. Judgment: improving. Insight: improving. Orientation: x 3. Recent and remote memory: intact. Attention span and concentration: good. Language: rissa. Fund of knowledge: average. Mood: anxious Affect: congruent with mood. DIAGNOSES: 1. Bipolar disorder, depressed 2. ADHD by history. MEDICATIONS ON DISCHARGE: Scheduled Lisdexamfetamine Dimesylate (Vyvanse) 70 Mg Capsule, 70 MG PO QAM, (Reported) Mirtazapine (Remeron) 15 Mg Tablet, 15 MG PO QHS for INSOMNIA, #7 Nicotine (Nicotine Patch) 21 Mg Patch.td24, 1 PATCH TD DAILY for NICOTINE CRAVINGS, #7 Quetiapine Fumarate (Quetiapine Fumarate) 25 Mg Tablet, 25 MG PO QAM for MOOD, #7 Quetiapine Fumarate (Quetiapine Fumarate) 100 Mg Tablet, 100 MG PO QHS for MOOD, #7 Scheduled PRN Docusate Sodium (Colace) 100 Mg Capsule, 100 MG PO BIDP PRN for CONSTIPATION, #14 PLAN/FOLLOWUP ARRANGEMENTS: Follow Up Care Education Label * Mental Health Appt 1 * Mental [facility] * Established With This Provider Yes * Therapist RICARDO * Date Aug 19, 2018 * Time 13:00 * Address of Clinic or Practice [address] [place] [address] * Follow Up Care Education Label * Medical * Medical Follow Up [facility] * Established With This Provider No * Therapist WINNIE AYALA * Date Aug 30, 2018 * Time 15:00 * Address of Clinic or Practice [address] [place] [address] * * Additional information Please arrive 15 minutes early to fill out new patient paperwork. Also, please remember to bring your insurance card and photo ID to this visit. Follow Up Care Education Label * Mental Health Appt 2 * [facility] * Established With This Provider Yes * Therapist ZOE * Date Sep 18, 2018 * Time 10:00 * Address of Clinic or Practice [address] [place] [address] * The amount of time spent in the coordination of care for this patient was approx imately 30 minutes. Medications Scheduled Lisdexamfetamine Dimesylate (Vyvanse) 70 Mg Capsule, 70 MG PO QAM, (Reported) Mirtazapine (Remeron) 15 Mg Tablet, 15 MG PO QHS for INSOMNIA, #7 Nicotine (Nicotine Patch) 21 Mg Patch.td24, 1 PATCH TD DAILY for NICOTINE CRAVINGS, #7 Quetiapine Fumarate (Quetiapine Fumarate) 25 Mg Tablet, 25 MG PO QAM for MOOD, #7 Quetiapine Fumarate (Quetiapine Fumarate) 100 Mg Tablet, 100 MG PO QHS for MOOD, #7 Scheduled PRN Docusate Sodium (Colace) 100 Mg Capsule, 100 MG PO BIDP PRN for CONSTIPATION, #14 Allergies Coded Allergies: Penicillins (Verified Allergy, Severe, 08/11/18) GLENYS CHILDERS MD Sep 07, 2018 22:54
== END 2018-08-16 12:15 | disposition home or self-care (01) | DRG 753 ==
LOC: M ED 21:29 → M ED INP 08-12 13:34 → M PSY 08-12 14:20
PROVIDERS: ADMIT Psychiatry & Neurology Psychiatry; ATTEND Psychiatry & Neurology Psychiatry
DX: F31.60 Bipolar disorder, current episode mixed, unspecified (principal); F41.1 Generalized anxiety disorder; F17.200 Nicotine dependence, unspecified, uncomplicated; F12.10 Cannabis abuse, uncomplicated; Z91.120 Patient's intentional underdosing of medication regimen due to financial hardship; Z88.0 Allergy status to penicillin; Z79.899 Other long term (current) drug therapy; Z63.5 Disruption of family by separation and divorce; F90.9 Attention-deficit hyperactivity disorder, unspecified type

== ENCOUNTER 2021-11-18 21:50 | Inpatient (IN) | payer MEDICAID, OTHER ==
[~2021-11-18] VITALS: Ht 175.3 cm; Wt 76.2 kg
[~2021-11-18 21:50] MED LIST changes: -ATOM40CA PO; +ATOM40CA16 PO; +COLA100C5 PO; +GABA-282 PO; -GABA-843 PO; +MIRT-60 PO; +MIRT-62 PO; +MIRT1TAB PO; +NICO1DIS12 TD; -NICO21DI31 TD; -OLAN10TA2 PO; -OLAN15TA PO; +OLAN15TA13 PO; +OLAN1TAB20 PO; +QUET100T2 PO; +QUET1TAB17 PO; -QUET1TAB7 PO; +REME15TA2 PO; -REME30TA PO; +VYVA70CA3 PO
[2021-11-18 22:00] VITALS: BP 95/69
[2021-11-18] MEDS ORDERED: diphenhydrAMINE 25MG CAP PO ONE (22:20)
[2021-11-18 22:30] VITALS: BP 93/61
[2021-11-18] MEDS ORDERED: HOME MED LIST COMPLETE! XX SCH (22:55)
[2021-11-18 23:00] VITALS: BP 101/66
[2021-11-18] MEDS ORDERED: ALBUTEROL SULFATE 2.5 MG/0.5 ML INH NEB SOLN NEB PRN (23:20)
[2021-11-18] MEDS: rOPINIRole 2MG TAB PO SCH (23:23)
[2021-11-18] MEDS ORDERED: ASPIRIN 81 MG CHEW TABLET PO ONE (23:25)
[2021-11-18 23:30] VITALS: BP 102/62
[2021-11-18] MEDS ORDERED: NS 1,000 ML IV SCH (23:30)
[2021-11-19] VITALS (18 sets, daily range): BP systolic 91–141; BP diastolic 50–74
[2021-11-19 00:26] LABS: BLOOD UREA NITROGEN 15 MG/DL (7-18); CALCIUM LEVEL 7.8 MG/DL (8.5-10.1); CARBON DIOXIDE LEVEL 26 MEQ/L (21-32); CHLORIDE LEVEL 110 MEQ/L (98-107); CREATININE FOR GFR 0.74 MG/DL (0.70-1.30); GLOMERULAR FILTRATION RATE > 60.0 (>60); GLUCOSE, FASTING 152 MG/DL (70-100); MAGNESIUM LEVEL 2.1 MG/DL (1.8-2.4); PHOSPHORUS LEVEL 4.2 MG/DL (2.5-4.9); POTASSIUM SERUM 4.4 MEQ/L (3.5-5.1); SODIUM LEVEL 139 MEQ/L (136-145)
[2021-11-19] MEDS ORDERED: diphenhydrAMINE 50MG/ML VIAL (J1200) IV STA (01:29)
[2021-11-19] MEDS ORDERED: OLANZapine 2.5MG TABLET PO ONE (02:00)
[2021-11-19] MEDS ORDERED: diltiaZEM 125 MG in NS 100 ML IV SCH ×3 (04:02)
[2021-11-19] MEDS: HEPARIN SOD (PORCINE) 5000UNITS/ML 1ML VIAL/SYRINGE SC SCH ×3 (06:00→21:56)
[2021-11-19 06:04] LABS: BASO # 0.1 10^3/uL (0.0-0.2); BASO % 0.4 % (0.0-1.0); EOS # 0.2 10^3/uL (0.0-0.5); EOS % 1.4 % (0.0-3.0); HEMATOCRIT 38.8 % (42.0-52.0); LYMPH % 25.2 % (24.0-44.0); MEAN CORPUSCULAR HEMOGLOBIN 30.3 pg (27.0-33.0); MEAN CORPUSCULAR HGB CONC 33.5 g/dl (32.0-36.5); MEAN CORPUSCULAR VOLUME 90.4 fl (80.0-96.0); MONO # 0.7 10^3/uL (0.0-0.8); MONO % 6.1 % (2.0-8.0); NEUTROPHILS # 7.9 10^3/uL (1.5-8.5); NEUTROPHILS % 66.6 % (36.0-66.0); PLATELET COUNT, AUTOMATED 168 10^3/uL (150-450); RED BLOOD COUNT 4.29 10^6/uL (4.30-6.10); WHITE BLOOD COUNT 11.8 10^3/uL (4.0-10.0)
[2021-11-19 06:34] LABS: ALBUMIN 3.2 GM/DL (3.2-5.2); ALT/SGPT 273 U/L (12-78); BLOOD UREA NITROGEN 15 MG/DL (7-18); CALCIUM LEVEL 7.9 MG/DL (8.5-10.1); CARBON DIOXIDE LEVEL 26 MEQ/L (21-32); CHLORIDE LEVEL 109 MEQ/L (98-107); CREATININE FOR GFR 0.78 MG/DL (0.70-1.30); GLOMERULAR FILTRATION RATE > 60.0 (>60); GLUCOSE, FASTING 94 MG/DL (70-100); POTASSIUM SERUM 4.1 MEQ/L (3.5-5.1); SODIUM LEVEL 139 MEQ/L (136-145); TOTAL PROTEIN 5.9 GM/DL (6.4-8.2)
[2021-11-19] MEDS ORDERED: methylPREDNISolone 125MG 2ML VIAL IV ONE (08:15)
[2021-11-19] MEDS: IPRATROPIUM 0.5MG/ALBUTEROL 2.5MG INH SOL UD 3ML (DUONEB) NEB SCH ×4 (08:29→19:03)
[2021-11-19] MEDS ORDERED: ASPIRIN 81 MG CHEW TABLET PO SCH (09:00)
[2021-11-19 11:54] LABS: CHOLESTEROL LEVEL 88 MG/DL (<200); CHOLESTEROL RISK RATIO 2.588 (<5); FREE T4 0.94 NG/DL (0.76-1.46); HDL CHOLESTEROL 34 MG/DL (>40); LDL CHOLESTEROL 38 MG/DL (<100); NON-HDL-C 54 MG/DL; TRIGLYCERIDES LEVEL 78 MG/DL (<150)
[2021-11-19 12:14] LABS: HEMOGLOBIN A1c 5.5 %
[2021-11-19] MEDS ORDERED: ISOVUE-370 76% 100ML VIAL As Ordered ONE (13:27)
[2021-11-19] MEDS: ATORVASTATIN 20 MG TAB PO SCH (14:30)
[2021-11-19] MEDS: LevoFLOXacin 750 MG TABLET PO SCH (14:31)
[2021-11-19] MEDS ORDERED: OLANZapine INTRAMUSCULAR 10MG VIAL IM ONE (16:25)
[2021-11-19] MEDS: rOPINIRole 2MG TAB PO SCH (20:13)
[2021-11-20] VITALS (7 sets, daily range): BP systolic 99–129; BP diastolic 56–81
[2021-11-20 04:34] LABS: BASO % 0.2 % (0.0-1.0); HEMATOCRIT 40.7 % (42.0-52.0); HEMOGLOBIN 13.4 g/dl (13.5-17.5); LYMPH % 10.2 % (24.0-44.0); MEAN CORPUSCULAR HEMOGLOBIN 29.6 pg (27.0-33.0); MEAN CORPUSCULAR HGB CONC 32.9 g/dl (32.0-36.5); MONO # 0.5 10^3/uL (0.0-0.8); MONO % 4.6 % (2.0-8.0); NEUTROPHILS # 8.4 10^3/uL (1.5-8.5); NEUTROPHILS % 84.6 % (36.0-66.0); PLATELET COUNT, AUTOMATED 168 10^3/uL (150-450); RED BLOOD COUNT 4.52 10^6/uL (4.30-6.10); WHITE BLOOD COUNT 9.9 10^3/uL (4.0-10.0)
[2021-11-20 05:13] LABS: ALBUMIN 3.1 GM/DL (3.2-5.2); ALT/SGPT 177 U/L (12-78); BILIRUBIN,TOTAL 0.7 MG/DL (0.2-1.0); BLOOD UREA NITROGEN 10 MG/DL (7-18); CALCIUM LEVEL 8.7 MG/DL (8.5-10.1); CARBON DIOXIDE LEVEL 27 MEQ/L (21-32); CHLORIDE LEVEL 109 MEQ/L (98-107); CREATININE FOR GFR 0.61 MG/DL (0.70-1.30); GLOMERULAR FILTRATION RATE > 60.0 (>60); GLUCOSE, FASTING 135 MG/DL (70-100); MAGNESIUM LEVEL 2.2 MG/DL (1.8-2.4); POTASSIUM SERUM 4.1 MEQ/L (3.5-5.1); SODIUM LEVEL 140 MEQ/L (136-145); TOTAL PROTEIN 5.8 GM/DL (6.4-8.2)
[2021-11-20] MEDS: HEPARIN SOD (PORCINE) 5000UNITS/ML 1ML VIAL/SYRINGE SC SCH ×3 (06:11→21:20)
[2021-11-20] MEDS: IPRATROPIUM 0.5MG/ALBUTEROL 2.5MG INH SOL UD 3ML (DUONEB) NEB SCH ×4 (07:49→20:00)
[2021-11-20] MEDS: TIOTROPIUM INHALER/CAPSULE (SPIRIVA) INH SCH (07:49)
[2021-11-20] MEDS: ATORVASTATIN 20 MG TAB PO SCH (08:52)
[2021-11-20] MEDS: ASPIRIN 81MG ENTERIC TABLET PO SCH (08:52)
[2021-11-20] MEDS: LevoFLOXacin 750 MG TABLET PO SCH (08:52)
[2021-11-20] MEDS ORDERED: METOPROLOL TART 12.5 MG PER 1/2 TAB PO SCH (09:00)
[2021-11-20] MEDS ORDERED: LEVO1TAB40 PO (10:58)
[2021-11-20] MEDS ORDERED: ATOR1TAB21 PO (10:58)
[2021-11-20] MEDS ORDERED: TIOT18INH INH (10:58)
[2021-11-20] MEDS ORDERED: ASPI-551 PO (10:58)
[2021-11-20] MEDS: rOPINIRole 2MG TAB PO SCH (21:20)
[2021-11-20] MEDS: ACETAMINOPHEN TAB 650MG DOSE (2X325MG) PO PRN (21:21)
[2021-11-21] MEDS: ACETAMINOPHEN TAB 650MG DOSE (2X325MG) PO PRN (05:26)
[2021-11-21 05:27] VITALS: BP 125/82
[2021-11-21] MEDS: HEPARIN SOD (PORCINE) 5000UNITS/ML 1ML VIAL/SYRINGE SC SCH (05:27)
[2021-11-21 06:10] LABS: HEMATOCRIT 40.9 % (42.0-52.0); HEMOGLOBIN 13.8 g/dl (13.5-17.5); MEAN CORPUSCULAR HEMOGLOBIN 30.1 pg (27.0-33.0); MEAN CORPUSCULAR HGB CONC 33.7 g/dl (32.0-36.5); MEAN CORPUSCULAR VOLUME 89.1 fl (80.0-96.0); PLATELET COUNT, AUTOMATED 162 10^3/uL (150-450); RED BLOOD COUNT 4.59 10^6/uL (4.30-6.10); WHITE BLOOD COUNT 8.5 10^3/uL (4.0-10.0)
[2021-11-21 06:49] LABS: ALBUMIN 2.9 GM/DL (3.2-5.2); ALT/SGPT 112 U/L (12-78); BILIRUBIN,TOTAL 0.6 MG/DL (0.2-1.0); BLOOD UREA NITROGEN 10 MG/DL (7-18); CALCIUM LEVEL 8.1 MG/DL (8.5-10.1); CARBON DIOXIDE LEVEL 28 MEQ/L (21-32); CHLORIDE LEVEL 109 MEQ/L (98-107); CREATININE FOR GFR 0.63 MG/DL (0.70-1.30); GLOMERULAR FILTRATION RATE > 60.0 (>60); GLUCOSE, FASTING 97 MG/DL (70-100); PHOSPHORUS LEVEL 3.1 MG/DL (2.5-4.9); POTASSIUM SERUM 3.5 MEQ/L (3.5-5.1); SODIUM LEVEL 140 MEQ/L (136-145); TOTAL PROTEIN 5.5 GM/DL (6.4-8.2)
[2021-11-21] MEDS: TIOTROPIUM INHALER/CAPSULE (SPIRIVA) INH SCH (07:11)
[2021-11-21] MEDS: IPRATROPIUM 0.5MG/ALBUTEROL 2.5MG INH SOL UD 3ML (DUONEB) NEB SCH (07:11)
[2021-11-21] MEDS: LevoFLOXacin 750 MG TABLET PO SCH (07:48)
[2021-11-21] MEDS: ASPIRIN 81MG ENTERIC TABLET PO SCH (07:49)
[2021-11-21] MEDS: ATORVASTATIN 20 MG TAB PO SCH (07:49)
[2021-11-21 10:20] LABS: HEPATITIS B CORE ANTIBODY IGM NEGATIVE (NEGATIVE); HEPATITIS B SURFACE ANTIGEN NEGATIVE (NEGATIVE)
== END 2021-11-21 09:15 | disposition short-term general hospital (02) | DRG 812 ==
LOC: UNDOADMIN 21:50 → M ICU 21:50 → M MSPAV 11-20 23:23 → UNDODISIN 11-21 09:15
PROVIDERS: ADMIT Internal Medicine; ATTEND Internal Medicine
DX: T43.621A Poisoning by amphetamines, accidental (unintentional), initial encounter (principal); K72.00 Acute and subacute hepatic failure without coma; J69.0 Pneumonitis due to inhalation of food and vomit; I27.20 Pulmonary hypertension, unspecified; I48.91 Unspecified atrial fibrillation; J43.9 Emphysema, unspecified; G25.81 Restless legs syndrome; F31.9 Bipolar disorder, unspecified; F17.210 Nicotine dependence, cigarettes, uncomplicated; F15.10 Other stimulant abuse, uncomplicated; F11.10 Opioid abuse, uncomplicated; I25.10 Atherosclerotic heart disease of native coronary artery without angina pectoris; J47.9 Bronchiectasis, uncomplicated; L29.9 Pruritus, unspecified; Z88.0 Allergy status to penicillin; Z90.49 Acquired absence of other specified parts of digestive tract; Z86.74 Personal history of sudden cardiac arrest